=== PATIENT | male | born 1970 | race Caucasian/White ===

== ENCOUNTER 2022-08-25 15:17 | Emergency (ER) | payer OTHER ==
[~2022-08-25] VITALS: Ht 182 cm; Wt 122.4 kg
[2022-08-25] MEDS ORDERED: CARV12.53 (15:44)
[2022-08-25] MEDS ORDERED: SACU1TAB7 (15:44)
[2022-08-25] MEDS ORDERED: HYDR25TA4 (15:44)
[2022-08-25] MEDS ORDERED: AMIO200T65 (15:44)
[2022-08-25] MEDS ORDERED: RIVA20TA (15:44)
[2022-08-25] MEDS ORDERED: fentaNYL INJ 100 MCG/2 ML AMP IVP ONE (16:00)
--- NOTE | 2022-08-25 16:21 | ED Upper Extremity ---
General Chief Complaint: Upper Extremity Stated Complaint: ARM INJURY Nursing Triage Note: PT PRESENTS TO ED VIA POV FROM HOME WITH COMPLAINTS OF L WRIST AND L ELBOW PAIN AFTER FALLING IN HIS GARAGE WHEN HE WAS MOVING ITEMS AROUND. PT DENIES LOC. DEFORMITY NOTED TO L WRIST. Source: patient Exam Limitations: no limitations History of Present Illness Date Seen by Provider: Aug 25, 2022 Time Seen by Provider: 15:39 Allergies and Home Medications Allergies Coded Allergies: No Known Drug Allergies (Unverified , 08/25/22) Patient Home Medication List Home Medication List Reviewed: Yes Amiodarone HCl (Amiodarone HCl) 200 Mg Tablet, (Reported) Entered as Reported by: JUAN SAGASTUME on 08/25/221543 Last Action: New Order Carvedilol (Carvedilol) 12.5 Mg Tablet, (Reported) Entered as Reported by: JUAN SAGASTUME on 08/25/221543 Last Action: New Order Hydrochlorothiazide (Hydrochlorothiazide) 25 Mg Tablet, (Reported) Entered as Reported by: JUAN SAGASTUME on 08/25/221543 Last Action: New Order Hydrocodone Bit/Acetaminophen (HYDROcodone/APAP 5 MG/325 MG TAB) 1 Tab Tab, 1 TAB PO Q6H Prescribed by: DANIELITO SORIA MD on 08/25/221753 Rivaroxaban (Xarelto) 20 Mg Tablet, (Reported) Entered as Reported by: JUAN SAGASTUME on 08/25/221543 Last Action: New Order Sacubitril/Valsartan (Entresto 49 mg-51 mg Tablet) 49 Mg-51 Mg Tablet, (Reported) Entered as Reported by: JUAN SAGASTUME on 08/25/221543 Last Action: New Order Review of Systems Constitutional: no symptoms reported EENTM: no symptoms reported Respiratory: no symptoms reported Cardiovascular: no symptoms reported Gastrointestinal: no symptoms reported Genitourinary: no symptoms reported Musculoskeletal: joint pain Skin: no symptoms reported Psychiatric/Neurological: No Symptoms Reported Past Ozswvpf-Rgziot-Cdsnfl Hx Patient Social History Tobacco Use?: No Smoking Status: Never a Smoker Substance use?: No Alcohol Use?: Yes Alcohol type: Beer Alcohol Frequency: Once in a while Pt feels they are or have been: No Past Medical History Surgery/Hospitalization HX: PMH: AFIB, HTN SX: APPY Family Medical History Reviewed Nursing Family Hx No Pertinent Family Hx Physical Exam Vital Signs Vital Signs - First Documented 08/25/22 15:25 Temp 35.9 Pulse 55 Resp 18 B/P (MAP) 128/84 (99) Pulse Ox 97 Capillary Refill : Less Than 3 Seconds Height, Weight, BMI Height: '" Weight: lbs. oz. kg; 36.00 BMI Method: General Appearance: WD/WN, no apparent distress HEENT: normal ENT inspection, pharynx normal Neck: non-tender, full range of motion, supple, normal inspection Cardiovascular: regular rate, rhythm, no edema, no gallop, no JVD, no murmur Respiratory: chest non-tender, lungs clear, normal breath sounds, no respiratory distress, no accessory muscle use Gastrointestinal: normal bowel sounds, non tender, soft, no organomegaly, no pulsatile mass Shoulder: normal inspection, non-tender, no evidence of injury Wrist: Yes deformity (Left wrist has deformity about the distal radius with swelling. Neurovascular motor and sensory intact. Elbow pain on that side as well. No obvious deformity.) Hand: normal inspection, non-tender, no evidence of injury Neurologic/Psychiatric: no motor/sensory deficits, alert, normal mood/affect, oriented x 3 Skin: normal color, warm/dry Progress/Results/Core Measures Results/Orders My Orders Orders - DANIELITO SORIA DO Propofol Injection (Diprivan Injection) (08/25/22 16:45) Wrist, Left, 2 Views (08/25/22 17:10) Medications Given in ED Vital Signs/I&O Blood Pressure Mean: 99 Diagnostic Imaging Diagonstic Imaging: Xray Plain Films/CT/US/NM/MRI: forearm Comments X-ray humerus, radius and ulna: Distal radius fracture. Postreduction films: Improved alignment but still some slight overriding displ acement Departure Communication (Admissions) Patient is hemodynamically stable, neurovascularly intact. Procedural sedation went well and reduced. I spoke with orthopedics, Dr. Grimes who states that reduction is adequate for follow-up in the clinic and will likely need operative repair. Patient discharged with pain medication, instructions for splint care and orthopedic follow-up. He states understanding is comfortable with current plan of care. Impression Primary Impression: Distal radius fracture, left Qualified Codes: S52.502A - Unspecified fracture of the lower end of left radius, initial encounter for closed fracture Disposition: HOME, SELF-CARE Condition: Stable Departure-Patient Inst. Referrals: EMILY GRIMES MD Patient Instructions: Caring for Your Splint, Wrist Fracture (DC) Add. Discharge Instructions: Please REST and elevate with normal use. Use the sling for comfort. Keep the splint clean and dry. Take the pain medication as prescribed as needed. Do not drive or make important decisions while taking it as it may make you drowsy. Follow-up with Dr. Grimes by calling to schedule an appointment. Return to the emergency department. Redness or severe discomfort related to your splint. All discharge instructions reviewed with patient and/or family. Voiced underst anding. Scripts Hydrocodone Bit/Acetaminophen (HYDROcodone/APAP 5 MG/325 MG TAB) 1 Tab Tab 1 TAB PO Q6H for Pain for 3 Days, #12 TAB Prov: DANIELITO SORIA DO 08/25/22 DANIELITO SORIA DO Aug 25, 2022 16:21
--- NOTE | 2022-08-25 16:39 | Diagnostic Imaging Report ---
INDICATION: Left wrist and elbow pain after a fall. FINDINGS: Two view left humerus shows no humeral fracture or dislocation. IMPRESSION: Humerus appears intact. Dictated by: Dictated on workstation # [id number]
--- NOTE | 2022-08-25 16:40 | Diagnostic Imaging Report ---
INDICATION: Left forearm injury. EXAMINATION: Three views of the left forearm. FINDINGS: There is an impacted fracture of the distal radius. Fracture is comminuted. The distal component of the radius is displaced dorsally by the full width of the bone. IMPRESSION: Impacted fracture of distal radius with complete dorsal offset of the distal radius and wrist. The radiocarpal relationship appears to be maintained. The shaft of the radius projects in the ventral soft tissues of the wrist. Dictated by: Dictated on workstation # [id number]
[2022-08-25] MEDS ORDERED: proPOfol 200 MG/20 ML (DIPRIVAN) VIAL IV ONE (16:45)
[2022-08-25] MEDS ORDERED: ACHD5005 PO (17:54)
--- NOTE | 2022-08-25 18:04 | Diagnostic Imaging Report ---
EXAMINATION: Left wrist two view. HISTORY: Fracture. COMPARISON: 08/25/2022. FINDINGS: There is a mildly displaced left distal radial fracture and improved alignment compared to prior exam. A splint is present. IMPRESSION: Improved alignment of the left distal radial fracture status post reduction and external splinting. Dictated by: Dictated on workstation # [id number]
[2022-08-25 18:09] VITALS: BP 120/73
== END 2022-08-25 18:09 | disposition home or self-care (01) ==
LOC: ER 15:20
DX: S52.502A Unspecified fracture of the lower end of left radius, initial encounter for closed fracture (principal); Z28.310 Unvaccinated for COVID-19; W19.XXXA Unspecified fall, initial encounter; Y92.59 Other trade areas as the place of occurrence of the external cause
CPT/HCPCS: 29105; 73060; 73090; 73100; 93041